=== PATIENT | female | born 1970 | race Caucasian/White ===

== ENCOUNTER 2016-07-05 08:43 | Emergency (ER) | payer BC ==
[~2016-07-05] VITALS: Ht 157.5 cm; Wt 63.4 kg
[~2016-07-05 08:43] MED LIST: BCPILLS PO; FLUO10CA48 PO
[2016-07-05 08:46] VITALS: TEMP 36.7; Ht 157.5 cm; Wt 63.4 kg
[2016-07-05] MEDS ORDERED: IBUPROFEN 600 MG TAB PO STA (09:46)
[2016-07-05 10:11] LABS: BASO % 0.3 %; EOS % 0.9 %; HEMATOCRIT 40.2 % (37-47); IG% 0.2 %; LYMPH % 16.9 %; LYMPH ABS # 1.09 K/uL (1.2-3.4); MEAN CELL VOLUME 82.9 fL (80-100); MEAN CORPUSCULAR HEMOGLOBIN 28.5 pg (25-34); MEAN CORPUSCULAR HGB CONC 34.3 g/dl (32-36); MEAN PLATELET VOLUME 9.8 fL (7.4-10.4); MONO % 8.8 %; NEUT % 72.9 %; PLATELET COUNT 221 K/uL (130-400); RED BLOOD COUNT 4.85 M/uL (4.2-5.4); WHITE BLOOD COUNT 6.45 K/uL (4.8-10.8)
[2016-07-05 10:12] LABS: BASO ABS # 0.02 K/uL (0-0.2); COMPLETE YES
[2016-07-05] MEDS ORDERED: AMPICILLIN/SULBACTAM SOD INJ 3,000 MG in SODIUM CHLORIDE 0.9% 100ML 100 ML IV ONE (10:15)
[2016-07-05 10:29] LABS: BUN/CREATININE RATIO 14.7 (10-20); CALCIUM 8.7 mg/dl (8.5-10.1); CREATININE 0.73 mg/dl (0.60-1.20); POTASSIUM 4.2 mmol/L (3.5-5.1)
--- NOTE | 2016-07-05 10:50 | DIAGNOSTIC IMAGING REPORT ---
RIGHT HAND 3 VIEWS HISTORY: cat bite Right COMPARISON: None. FINDINGS: There is no fracture or dislocation. Soft tissue swelling within the thenar region, thumb, and index finger. No radiopaque foreign bodies. IMPRESSION: No fractures. Soft tissue swelling. Electronically signed by: Husam Quach M.D. 07/05/2016 10:49 AM Dictated Date/Time: 07/05/2016 10:47 AM
[2016-07-05] MEDS ORDERED: DIPHTHERIA/TETANUS/PERTUSSIS 0.5 ML SYR/VIAL IM. ONE (11:15)
[2016-07-05] MEDS ORDERED: AMOX875T PO (11:21)
[2016-07-05 11:33] VITALS: BP 121/81; PULSE 69; O2SAT 97
--- NOTE | 2016-07-06 21:12 | EMERGENCY ROOM VISIT NOTE ---
ED Visit Note First contact with patient: 09:17 Chief Complaint: My bit me on my right hand. History of Present Illness: Ms. Jean Baptiste is a 46-year-old white female who ambulates into the ED accompanied by her 2 children complaining of right hand pain and swelling. Patient reports approximately 13 hours ago she was bit on the right index finger by her cat. She reports the cat is a kitten and is up-to-date with his immunizations. The bite occurred over the distal phalanx of the finger. She does report there was bleeding after the wound and she had some mild discomfort at that time. She cleansed the wound. This morning after waking she noticed swelling extending from the wound and just past the MCP joint of the index finger and extending medially over the MCP joint of the middle finger. There is also extension into the distal aspect of the proximal phalange. Currently she describes her pain as a throbbing discomfort. She rates her discomfort 6/10. The pain is nonradiating. Her pain worsens with palpation and flexion and extension of the DIP, PIP and MCP joint. She has not identified any alleviating factors related to the pain. She has not taken any medications for pain prior to arrival at the hospital. Associated with her pain she reports paresthesias in the index and middle fingers and reports she has been having some sensations of feeling hot but no tati fevers. She denies chills, sweats, upper respiratory tract symptoms, abdominal pain, nausea, vomiting, other hand pain. Review of Systems: As noted above in history of present illness. 8 body systems were reviewed and found to be negative as noted above. Past Medical History: Status post section, abdominoplasty and breast reduction. Current Medications: Prozac. Allergies to Medications: Patient denies. Social History: Patient is currently employed; she lives with her children and feels safe in her home environment; she denies tobacco use and admits to alcohol use. Tetanus Immunization Status: Patient was unsure but when she was referred to the ED by her PCP it was noted that she was out of date. Physical Examination: Vital Signs: Date Time Temp Pulse Resp B/P Pulse Ox O2 Delivery O2 Flow Rate FiO2 07/05/16 11:33 69 18 121/81 97 07/05/16 08:46 36.7 76 16 136/93 97 Room Air GENERAL: 46-year-old female in mild to moderate distress due to pain, nontoxic- appearing, afebrile and hemodynamically stable. NEUROLOGICAL: Awake, alert and oriented to person, place and time. Answering questions appropriately and following commands. Normal gait. No focal motor or sensory deficits. SKIN: Warm, dry and pink. Right Hand: Single cat puncture wound over the distal phalanx of the index finger. THORAX: Lungs sounds are clear to auscultation and equal bilaterally with symmetrical chest wall. ABDOMEN: Flat, soft and nontender. Positive bowel sounds in all quadrants. No guarding, rigidity or organomegaly. RIGHT HAND: Single puncture wound as previously noted from cat bite over the distal phalanxes. Both the index finger and middle finger are moderately erythematous and edematous. This extends proximally to approximately 1-2 cm beyond the MCP joints. This area is warm to the touch. There is no lymphangitis. She refuses to do range of motion exercises into the joint due to pain. Capillary refill is brisk. She was able to distinguish light sensations through all dermatomes of the finger. ED Course: Patient is assessed as noted above. Laboratory Testing: Test 07/05/16 10:00 Range/Units White Blood Count 6.45 4.8-10.8 K/uL Red Blood Count 4.85 4.2-5.4 M/uL Hemoglobin 13.8 12.0-16.0 g/dL Hematocrit 40.2 37-47 % Mean Corpuscular Volume 82.9 80-100 fL Mean Corpuscular Hemoglobin 28.5 25-34 pg Mean Corpuscular Hemoglobin Concent 34.3 32-36 g/dl Platelet Count 221 130-400 K/uL Mean Platelet Volume 9.8 7.4-10.4 fL Neutrophils (%) (Auto) 72.9 % Lymphocytes (%) (Auto) 16.9 % Monocytes (%) (Auto) 8.8 % Eosinophils (%) (Auto) 0.9 % Basophils (%) (Auto) 0.3 % Neutrophils # (Auto) 4.70 1.4-6.5 K/uL Lymphocytes # (Auto) 1.09 1.2-3.4 K/uL Monocytes # (Auto) 0.57 0.11-0.59 K/uL Eosinophils # (Auto) 0.06 0-0.5 K/uL Basophils # (Auto) 0.02 0-0.2 K/uL RDW Standard Deviation 36.9 36.4-46.3 fL RDW Coefficient of Variation 12.3 11.5-14.5 % Immature Granulocyte % (Auto) 0.2 % Immature Granulocyte # (Auto) 0.01 0.00-0.02 K/uL Sodium Level 141 136-145 mmol/L Potassium Level 4.2 3.5-5.1 mmol/L Chloride Level 109 98-107 mmol/L Carbon Dioxide Level 30 21-32 mmol/L Anion Gap 2.0 3-11 mmol/L Blood Urea Nitrogen 11 7-18 mg/dl Creatinine 0.73 0.60-1.20 mg/dl Est Creatinine Clear Calc Drug Dose 85.2 ml/min Estimated GFR () 115.3 Estimated GFR (Non- 99.5 BUN/Creatinine Ratio 14.7 10-20 Random Glucose 87 70-99 mg/dl Calcium Level 8.7 8.5-10.1 mg/dl Right Hand X-Rays: Were read by myself and the radiologist showing no acute fractures or dislocations. No foreign body in the area of the cat bite. An IV lock was initiated and patient received 3 g of Unasyn IV for antibiotic coverage. Patient was offered narcotic pain control and refused but did accept 600 mg of ibuprofen. Additionally she also received an Adacel booster. The index and middle finger were placed in a metal finger splint Patient's case was reviewed with Dr. Galindo; we agreed on diagnostic approach, treatment, disposition and plan. Patient is educated about tonight's findings and instructed on her treatment plan; she verbalized understanding and agreement with this plan Clinical Impression: Cat bite infection to the right hand. Possible early tenosynovitis. Disposition: Patient discharged home in stable condition accompanied by her children; prior to departure she was reassessed and subjectively reported she was feeling much better and rated her discomfort 2/10. Prior to discharge I did discuss the possible need for narcotic pain control and patient did not want to receive any narcotics at this time. Plan: Patient was encouraged to alternate ibuprofen and acetaminophen as needed for pain. Patient was encouraged to keep ice over areas of pain and swelling. Patient was encouraged to stay in her finger splint and to elevate her hand while at rest. Patient was prescribed Augmentin 875 mg 2 times a day. Wound care and signs of infection were discussed with the patient. Patient was encouraged return the ED for recheck in 36-48 hours. Patient was encouraged return the ED sooner for worsening/uncontrolled pain, increasing signs of infection or any new/concerning symptoms.
== END 2016-07-05 11:34 | disposition home or self-care (01) ==
LOC: C.EDB 08:44
DX: S61.250A Open bite of right index finger without damage to nail, initial encounter (principal); W55.01XA Bitten by cat, initial encounter; Z79.899 Other long term (current) drug therapy; Z23 Encounter for immunization

== ENCOUNTER 2016-07-05 20:32 | Emergency (ER) | payer BC ==
[~2016-07-05] VITALS: Ht 157.5 cm; Wt 63.3 kg
[~2016-07-05 20:32] MED LIST changes: +AMOX875T PO
[2016-07-05 20:35] VITALS: TEMP 36.7; Ht 157.5 cm; Wt 63.3 kg
[2016-07-05] MEDS ORDERED: PIPERACILLIN/TAZOBACTAM 4.5 GM/100ML D5W IV STA (22:03)
[2016-07-05 22:37] LABS: BASO % 0.2 %; BASO ABS # 0.01 K/uL (0-0.2); COMPLETE YES; HEMATOCRIT 40.3 % (37-47); IG% 0.2 %; LYMPH % 20.3 %; LYMPH ABS # 1.34 K/uL (1.2-3.4); MEAN CELL VOLUME 84.3 fL (80-100); MEAN CORPUSCULAR HEMOGLOBIN 29.9 pg (25-34); MEAN CORPUSCULAR HGB CONC 35.5 g/dl (32-36); MEAN PLATELET VOLUME 10.3 fL (7.4-10.4); MONO % 9.1 %; NEUT % 68.2 %; PLATELET COUNT 227 K/uL (130-400); RED BLOOD COUNT 4.78 M/uL (4.2-5.4); WHITE BLOOD COUNT 6.61 K/uL (4.8-10.8)
[2016-07-05 23:48] VITALS: BP 124/83; PULSE 68; O2SAT 98
--- NOTE | 2016-07-06 00:50 | EMERGENCY ROOM VISIT NOTE ---
History Report prepared by Howie: Muna Cazares Under the Supervision of: Dr. Bakari Beach D.O. First contact with patient: 21:53 Chief Complaint: SWELLING TO EXTREMITY Stated Complaint: JUST LEFT TODAY,PAIN/SWELLING R HAND GETTING WORSE History of Present Illness The patient is a 46 year old female who presents to the Emergency Room with complaints of worsening right hand pain starting 1 day [employer]. The patient states that her family cat bit her hand yesterday causing pain and swelling. She states she was seen at the ED earlier today but after returning home had worsening pain and swelling. She currently rates the pain as a 5/10 in severity. She states that she was prescribe Augmentin earlier today and took her first dose about 9 hours ago. She states that she marked the swelling earlier with a marker on her hand and that it has increased in size over the course of the day. The patient denies any streaking up her arm from the bite site. The patient denies any allergies to medication, chest pain, nausea, vomiting, diarrhea or fevers. The patient states she took 600 mg of Advil about 3 hours ago which she states did relieve some of her pain. The patient states that she is right hand dominate and her profession involves a lot of typing. Source of History: patient Onset: 1 day [employer] Position: hand (right) Symptom Intensity: 5/10 Timing: worsening Modifying Factors (Relieving): other (Advil 600 mg) Associated Symptoms: No chest pain, No diarrhea, No fevers, No nausea, No vomiting Note: Associated symptoms: worsening swelling of bite site. Patient denies streaking up right arm. Review of Systems See HPI for pertinent positives & negatives. A total of 10 systems reviewed and were otherwise negative. Past Medical & Surgical Medical Problems: (1) No Known Active Medical Problems Family History Diabetes mellitus FH: cancer Kidney disease Kidney stones Social History Smoking Status: Never Smoker Marital Status: Housing Status: lives with family Occupation Status: employed Current/Historical Medications Scheduled Amoxicillin & Pot Clavulanate (Augmentin 875-125 mg), 1 TAB PO BID Fluoxetine (Prozac), 10 MG PO DAILY Allergies Coded Allergies: No Known Allergies (Verified , 07/05/16) Physical Exam Vital Signs Date Time Temp Pulse Resp B/P Pulse Ox O2 Delivery O2 Flow Rate FiO2 07/05/16 23:48 68 16 124/83 98 Room Air 07/05/16 22:25 71 16 138/83 96 Room Air 07/05/16 20:35 36.7 95 18 140/94 94 Room Air Physical Exam GENERAL: alert, well appearing, well nourished, no distress, non-toxic EYE EXAM: normal conjunctiva, OROPHARYNX: no exudate, no erythema, lips, buccal mucosa, and tongue normal and mucous membranes are moist NECK: supple, no nuchal rigidity, no adenopathy, non-tender LUNGS: Clear to auscultation. Normal chest wall mechanics HEART: no murmurs, S1 normal and S2 normal ABDOMEN: abdomen soft, non-tender, normo-active bowel sounds, no masses, no rebound or guarding. BACK: Back is symmetrical on inspection and there is no deformity, no midline tenderness, no CVA tenderness. SKIN: no rashes and no bruising UPPER EXTREMITIES: right hand two puncture wounds to the lateral aspect of the 2nd digit just distal to the PIP. Dorsal aspect with swelling and erythema on second digit tracking distally 5 cm, no tenderness with extension of the digits. erythema does tract up to 3rd digit and 4 digit/MTPs, no streaking down arm, no adenopathy in the Axilla. radial pulse 2/4, gross sensation intact. LOWER EXTREMITIES: No pitting edema. NEURO EXAM: Normal sensorium Medical Decision & Procedures Laboratory Results 07/05/16 22:20 Red Blood Count 4.78, Mean Corpuscular Volume 84.3, Mean Corpuscular Hemoglobin 29.9, Mean Corpuscular Hemoglobin Concent 35.5, Mean Platelet Volume 10.3, Neutrophils (%) (Auto) 68.2, Lymphocytes (%) (Auto) 20.3, Monocytes (%) (Auto) 9.1, Eosinophils (%) (Auto) 2.0, Basophils (%) (Auto) 0.2, Neutrophils # (Auto) 4.52, Lymphocytes # (Auto) 1.34, Monocytes # (Auto) 0.60, Eosinophils # (Auto) 0.13, Basophils # (Auto) 0.01 Test 07/05/16 22:20 White Blood Count 6.61 K/uL (4.8-10.8) Red Blood Count 4.78 M/uL (4.2-5.4) Hemoglobin 14.3 g/dL (12.0-16.0) Hematocrit 40.3 % (37-47) Mean Corpuscular Volume 84.3 fL (80-100) Mean Corpuscular Hemoglobin 29.9 pg (25-34) Mean Corpuscular Hemoglobin Concent 35.5 g/dl (32-36) Platelet Count 227 K/uL (130-400) Mean Platelet Volume 10.3 fL (7.4-10.4) Neutrophils (%) (Auto) 68.2 % Lymphocytes (%) (Auto) 20.3 % Monocytes (%) (Auto) 9.1 % Eosinophils (%) (Auto) 2.0 % Basophils (%) (Auto) 0.2 % Neutrophils # (Auto) 4.52 K/uL (1.4-6.5) Lymphocytes # (Auto) 1.34 K/uL (1.2-3.4) Monocytes # (Auto) 0.60 K/uL (0.11-0.59) Eosinophils # (Auto) 0.13 K/uL (0-0.5) Basophils # (Auto) 0.01 K/uL (0-0.2) RDW Standard Deviation 38.4 fL (36.4-46.3) RDW Coefficient of Variation 12.6 % (11.5-14.5) Immature Granulocyte % (Auto) 0.2 % Immature Granulocyte # (Auto) 0.01 K/uL (0.00-0.02) Laboratory results per my review. Medications Administered Medications (Trade) Dose Ordered Sig/Tuan Route Start Time Stop Time Status Last Admin Dose Admin Piperacillin Sod/ Tazobactam Sod (Zosyn Iv) 4.5 gm NOW STAT IV 07/05/16 22:03 07/05/16 22:04 DC 07/05/16 22:24 4.5 GM ED Course ED COURSE: Vital signs were reviewed and showed normal vitals The patients medical record was reviewed The above diagnostic studies were performed and reviewed. ED treatments and interventions as stated above. 2155: The patient was evaluated in room A10. A complete history and physical examination was performed. 2202: Ordered Zosyn Iv 4.5 gm IV. 0: I reevaluated the patient and she was resting comfortably. I offered observation but she states that she feels comfortable going home..I discussed my findings with the patient and she understands and agrees with the treatment plan. Based on the patients age, coexisting illnesses, exam and lab findings the decision to treat as an outpatient was made.The patient remained stable while under my care.The patient appeared well at the time of discharge. Medical Decision Differential diagnosis includes etiologies such as cellulitis, abscess, MRSA infection, DVT, necrotizing fasciitis, dermatitis, drug eruption, as well as others were entertained. Patient is a 46-year-old female who presents the ER following a cat bite to her right second digit. She was seen here earlier today and given a dose of Unasyn and placed on Augmentin. She returns today as the erythema has gone about 2 cm beyond the line that was drawn from earlier today. No fevers. This appears to be a cellulitis and I do not believe that it involves the PIP joint. CBC was unremarkable. X-rays were reviewed and showed no foreign bodies. I do not believe that this is a tenosynovitis however it is marginal and does need close follow-up. I recommended following up on Friday. I did give her dose of Zosyn for additional coverage. Stressed the importance of continuing the Augmentin and returning for any fevers, streaking redness up the arm, significant pain with flexion or extension of the digit or any other concerning signs or symptoms from her standpoint. Discussed with Pt concerning signs and symptoms to watch out for. Pt was instructed to follow up with their PCP and discussed with the patient their option to return to the ED at anytime for persistent or worsening symptoms. The appropriate anticipatory guidance and out- patient management, including indications for return to the emergency department , were explained at length to the patient and understood. Impression Primary Impression: Cellulitis Scribe Attestation The scribe's documentation has been prepared under my direction and personally reviewed by me in its entirety. I confirm that the note above accurately reflects all work, treatment, procedures, and medical decision making performed by me. Departure Information Dispostion Home / Self-Care Referrals Sherry Jimenez D.O. (PCP) Forms HOME CARE DOCUMENTATION FORM, IMPORTANT VISIT INFORMATION, WORK / SCHOOL INSTRUCTIONS Patient Instructions My [facility] Additional Instructions Please follow up with the ER on Friday morning. Any worsening of your symptoms , please return to the ED immediately. This includes fevers grade and 100.4, streaking redness up her arm, redness in your axilla, unable to bend or extend your finger without significant pain, purulent discharge, or any other concerning signs or symptoms from your standpoint. If your swelling and redness improved significantly Friday morning you can follow up with your primary care doctor on Friday or Friday. Please continue your current antibiotics. Problem Qualifiers Primary Impression: Cellulitis Site of cellulitis: extremity Site of cellulitis of extremity: finger Laterality: right Qualified Codes: L03.011 - Cellulitis of right finger
== END 2016-07-05 23:48 | disposition home or self-care (01) ==
LOC: C.EDB 20:33 → C.EDA 23:48
DX: L03.011 Cellulitis of right finger (principal); Z83.3 Family history of diabetes mellitus; Z80.9 Family history of malignant neoplasm, unspecified; Z84.1 Family history of disorders of kidney and ureter